=== PATIENT | male | born 1940 | race Caucasian/White ===

== ENCOUNTER 2018-01-25 10:30 | Outpatient (RCR) | payer MEDICARE | END 2018-02-24 | disposition home or self-care (01) | LOC: ONC 10:30 | PROVIDERS: ATTEND Radiology Radiation Oncology | DX: C61 Malignant neoplasm of prostate (principal) | CPT/HCPCS: 76873; 99205 ==

== ENCOUNTER 2018-03-27 09:37 | Outpatient (CLI) | payer MEDICARE ==
[~2018-03-27] VITALS: Ht 182.9 cm; Wt 113.4 kg
[2018-03-27 09:51] VITALS: BP 144/80
[2018-03-27] MEDS ORDERED: LEVO88TA54 PO (10:33)
[2018-03-27] MEDS ORDERED: APIX5TAB PO (10:33)
[2018-03-27] MEDS ORDERED: ATOR40TA70 PO (10:33)
[2018-03-27] MEDS ORDERED: VITA150T PO (10:33)
[2018-03-27] MEDS ORDERED: LORA-1025 PO (10:33)
[2018-03-27] MEDS ORDERED: AMLO5TAB7 PO (10:33)
[2018-03-27] MEDS ORDERED: ASPI-586 PO (10:33)
[2018-03-27] MEDS ORDERED: VALS1TAB78 PO (10:33)
[2018-03-27] MEDS ORDERED: ALLO300T2 PO (10:33)
== END 2018-03-27 10:12 | disposition home or self-care (01) ==
LOC: PREOP 09:37
PROVIDERS: ATTEND Radiology Radiation Oncology
DX: Z01.818 Encounter for other preprocedural examination (principal)
CPT/HCPCS: 87081

== ENCOUNTER 2018-04-05 11:32 | Day surgery (SDC) | payer MEDICARE ==
[~2018-04-05] VITALS: Ht 182.9 cm; Wt 113.4 kg
[~2018-04-05 11:32] MED LIST: ALLO300T2 PO; AMLO5TAB7 PO; APIX5TAB PO; ASPI-586 PO; ATOR40TA70 PO; LEVO88TA54 PO; LORA-1025 PO; VALS1TAB78 PO; VITA150T PO
[2018-04-05 11:37] VITALS: BP 125/79
--- NOTE | 2018-04-05 12:16 | Progress Note-Pre Operative ---
Pre-Operative Progress Note H&P Reviewed The H&P was reviewed, patient examined and no changes noted. Date Seen by Provider: Apr 05, 2018 Time Seen by Provider: 12:15 Date H&P Reviewed: Apr 05, 2018 Time H&P Reviewed: 12:15 Pre-Operative Diagnosis: Prostate cancer cT1c, PSA 6.57, [place] 7 (4+3) TOMAS BRAY MD Apr 05, 2018 12:16
--- NOTE | 2018-04-05 12:20 | Discharge Inst-Simple/Standard ---
Discharge Inst-Standard Discharge Medications New, Converted or Re-Newed RX: RX Given to Pt/Family Patient Instructions/Follow Up Plan of Care/Instructions/FU: 1) Follow up appointment with Dr. Traylor May 04 9:30 a.m. 2) Follow up appointment at [facility] for one month post implant scan May 03 at 9:30 a.m. Activity as Tolerated: Yes Discharge Diet: No Restrictions Other Inst to Patient Please instruct pt/family how to remove craft catheter. Either TuesdayApr 07 or TuesdayApr [address] Traylor. TOMAS BRAY MD Apr 05, 2018 12:20
[2018-04-05] MEDS ORDERED: TRAM50TA2 PO (12:23)
[2018-04-05] MEDS ORDERED: CIPR-226 PO (12:23)
[2018-04-05] MEDS ORDERED: LACTATED RINGERS 1,000 ML IV PRN (12:34)
[2018-04-05] MEDS ORDERED: LEVOFLOXACIN 500 MG/100 ML IV 100 ML IV ONE (12:45)
[2018-04-05] MEDS ORDERED: SEVOFLURANE (ULTANE) 15 ML INHAL SOLN ONE (13:46)
[2018-04-05] MEDS ORDERED: DEXAMETHASONE 10 MG/ML (DECADRON) 1 ML VIAL ONE (13:46)
[2018-04-05] MEDS ORDERED: LIDOCAINE PF 2% 5 ML (XYLOCAINE) VIAL ONE (13:46)
[2018-04-05] MEDS ORDERED: proPOfol 200 MG/20 ML (DIPRIVAN) VIAL IV ONE (13:46)
[2018-04-05] MEDS ORDERED: ONDANSETRON 4 MG/2 ML (SDV) Z0FRAN ONE (13:46)
[2018-04-05] MEDS ORDERED: MIDAZOLAM 2 MG/2 ML (VERSED) VIAL ONE (13:48)
[2018-04-05] MEDS ORDERED: fentaNYL INJECTION 100 MCG/2 ML AMP ONE ×2 (13:48→15:15)
[2018-04-05] MEDS ORDERED: morphine INJ 10 MG/ML 1ML (SYR OR VIAL) IVP ONE (15:00)
[2018-04-05] MEDS ORDERED: ONDANSETRON 4 MG/2 ML (SDV) Z0FRAN IVP PRN (15:00)
--- NOTE | 2018-04-05 15:16 | Progress Note-Post Operative ---
Post-Operative Progess Note Surgeon (s)/Wet Pan Mixer (s) Surgeon TOMAS BRAY MD Wet Pan Mixer: Farzaneh PAYNE MD Pre-Operative Diagnosis Prostate cancer cT1c, PSA 6.57, [place] 7 (4+3) Post-Operative Diagnosis Same as Pre-op Procedure & Operative Findings Date of Procedure 04/05/18 Procedure Performed/Findings 100% Cesium 131 permanent prostate seed implant; injection of biodegradable hydrogel prostate-rectal spacer utilizing the SpaceOAR system; cystogram Prostate volume 27.3 cc Anesthesia Type General Estimated Blood Loss Estimated blood loss (mL): Minimal Specimens/Packing Specimens Removed None Packing: None TOMAS BRAY MD Apr 05, 2018 15:16
[2018-04-05] MEDS ORDERED: fentaNYL INJECTION 100 MCG/2 ML AMP IVP ONE ×2 (15:30→15:45)
--- NOTE | 2018-04-05 15:39 | Anesthesia-General Post-Op ---
General Patient Condition Mental Status/LOC: Same as Preop Cardiovascular: Satisfactory Nausea/Vomiting: Absent Respiratory: Satisfactory Pain: Controlled Complications: Absent Post Op Complications Complications None Follow Up Care/Instructions Patient Instructions None needed. Anesthesia/Patient Condition Patient Condition Patient is C/O right hip pain currently. 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 His right hip needs to be replaced, per patient who has seen Dr Riddle. This discomfort is most likely due to the lithotomy position needed for the procedure. He has been given multiple doses of pain medicine and will monitor for improvement. JEANNE GANN DO Apr 05, 2018 15:39
[2018-04-05] MEDS ORDERED: HYDROmorphone 2 MG/ML VIAL (DILAUDID) IV ONE (15:45)
[2018-04-05 16:10] VITALS: BP 143/80
[2018-04-05 16:45] VITALS: BP 140/82
[2018-04-05 17:30] VITALS: BP 134/83
[2018-04-05 18:05] VITALS: BP 134/83
--- NOTE | 2018-04-05 19:52 | Diagnostic Imaging Report ---
INDICATION: Undergoing brachytherapy. TECHNIQUE: 2 intraprocedural images midline pelvis CORRELATION STUDY: None FINDINGS: Intraprocedure imaging demonstrates multiple radiation seed implants to the expected location in the prostate gland. There is contrast material as well as [place] catheter within the urinary bladder. Fluoroscopy time: 10 seconds IMPRESSION: 1. Fluoroscopy utilized for brachytherapy at the level of the prostate gland. Dictated by: Dictated on workstation # [id number]
== END 2018-04-05 18:05 | disposition home or self-care (01) ==
LOC: SDC 11:32
PROVIDERS: ATTEND Radiology Radiation Oncology
DX: C61 Malignant neoplasm of prostate (principal); I10 Essential (primary) hypertension; I48.91 Unspecified atrial fibrillation; K21.9 Gastro-esophageal reflux disease without esophagitis; G57.93 Unspecified mononeuropathy of bilateral lower limbs; E66.9 Obesity, unspecified; Z68.33 Body mass index [BMI] 33.0-33.9, adult; Z79.01 Long term (current) use of anticoagulants; Z79.82 Long term (current) use of aspirin; Z79.899 Other long term (current) drug therapy
CPT/HCPCS: 76965; 77318; 77332; 77370; 77470; 77778